=== PATIENT | female | born 1990 | race Two or more races ===

== ENCOUNTER 2024-01-13 18:59 | Emergency (ER) | payer OTHER ==
[~2024-01-13] VITALS: Ht 152.4 cm; Wt 77.3 kg
[~2024-01-13 18:59] MED LIST: NOCURR
[2024-01-13 19:10] VITALS: BP 167/104; PULSE 93; RESP 18; TEMP 98.2; O2SAT 99
[2024-01-13 19:43] LABS: COVID AG,FIA SOURCE NASAL SWAB
[2024-01-13 20:08] LABS: RAPID GROUP A STREP NEGATIVE (NEGATIVE)
[2024-01-13 20:11] LABS: SARS-COV2 (COVID) ANTIGEN,FIA Negative (Negative)
[2024-01-13 20:13] LABS: INFLUENZA TYPE A NEGATIVE FOR TYPE A (NEGATIVE); INFLUENZA TYPE B NEGATIVE FOR TYPE B (NEGATIVE)
[2024-01-13] MEDS ORDERED: AMOX250C4 PO (22:12)
== END 2024-01-13 22:23 | disposition home or self-care (01) ==
LOC: EMS 18:59
DX: J02.9 Acute pharyngitis, unspecified (principal); Z20.822 Contact with and (suspected) exposure to COVID-19
CPT/HCPCS: 87430; 87804; 99283